=== PATIENT | male | born 1960 | race Caucasian/White ===

== ENCOUNTER 2016-10-11 11:57 | Emergency (ER) | payer MEDICAID, OTHER ==
[~2016-10-11] VITALS: Ht 182.9 cm; Wt 75.9 kg
[2016-10-11] MEDS ORDERED: SODIUM CHLORIDE 0.9% 1,000ML IVBOLUS ONE ×2 (13:00→15:30)
[2016-10-11] MEDS ORDERED: SODIUM CHLORIDE FLUSH 10ML SYR IVF ONE (13:00)
[2016-10-11 13:27] LABS: BLOOD UREA NITROGEN 10 mg/dL (7-18)
[2016-10-11 13:32] LABS: ASPARTATE AMINO TRANSFERASE 5 U/L (15-37)
[2016-10-11 13:33] LABS: IS PT STATUS REG ER OR PRE ER? YES
[2016-10-11] MEDS ORDERED: INSULIN REGULAR 100 UNITS/ML, 3ML VIAL SQ-INSULIN ONE (14:00)
[2016-10-11] MEDS ORDERED: INSULIN SINGLE DOSE, ER SQ-INSULIN ONE (14:46)
[2016-10-11] MEDS ORDERED: INSULIN REGULAR 100 UNITS/ML, 3ML VIAL ONE (14:47)
[2016-10-11 16:43] VITALS: BP 114/69
== END 2016-10-11 17:50 | disposition home or self-care (01) ==
LOC: ED 15:09
DX: E11.65 Type 2 diabetes mellitus with hyperglycemia (principal)
CPT/HCPCS: 36415; 71010; 80053; 82962; 84484; 85025; 93005; 96360; 96361; 96372; 99285; J7030

== ENCOUNTER 2017-01-28 20:14 | Inpatient (IN) | payer MEDICAID ==
[~2017-01-28] VITALS: Ht 182.9 cm; Wt 81.4 kg
[2017-01-28] MEDS ORDERED: ONDANSETRON 2MG/ML, 2ML ONE (21:29)
[2017-01-28] MEDS ORDERED: MORPHINE SULFATE 4 MG/ML, 1ML ONE (21:29)
[2017-01-28] MEDS ORDERED: methylPREDNISolone SOD SUCC 125 MG/2 ML ONE (21:29)
[2017-01-28] MEDS ORDERED: SODIUM CHLORIDE FLUSH 10ML SYR IVF ONE (21:30)
[2017-01-28] MEDS ORDERED: methylPREDNISolone SOD SUCC 125 MG/2 ML IVP ONE (21:30)
[2017-01-28] MEDS ORDERED: ONDANSETRON 2MG/ML, 2ML IVP ONE (21:30)
[2017-01-28] MEDS ORDERED: MORPHINE SULFATE 4 MG/ML, 1ML IVPush PRN (21:30)
[2017-01-28] MEDS ORDERED: SODIUM CHLORIDE 0.9% 1,000ML IVBOLUS ONE (21:30)
[2017-01-28 21:41] LABS: HEMATOCRIT 47.3 % (39.2-51.8); HEMOGLOBIN 15.8 g/dL (13.7-18.0); WHITE BLOOD COUNT 14.6 x10^3/uL (3.4-10)
[2017-01-28 21:46] LABS: ASPARTATE AMINO TRANSFERASE 10 U/L (15-37); BLOOD UREA NITROGEN 15 mg/dL (7-18)
[2017-01-28 21:51] LABS: IS PT STATUS REG ER OR PRE ER? YES
[2017-01-28] MEDS ORDERED: ALBUTEROL/IPRATROPIUM 2.5MG/0.5MG, 3 ML ONE (21:53)
[2017-01-28] MEDS ORDERED: AZITHROMYCIN 500 MG in SODIUM CHLORIDE 0.9% 250 ML IV ONE (23:00)
[2017-01-29] MEDS ORDERED: LABETALOL 5MG/ML, 20ML IVPush PRN
[2017-01-29] MEDS ORDERED: INSULIN DETEMIR 100 UNITS/ML, PEN SQ-INSULIN SCH
[2017-01-29] MEDS ORDERED: ONDANSETRON ODT 4 MG PO PRN
[2017-01-29] MEDS ORDERED: GUAIFENESIN/DM 200-20MG, 10ML UDC PO PRN
[2017-01-29] MEDS ORDERED: BISACODYL 10 MG SUPP PR PRN
[2017-01-29] MEDS ORDERED: HYDROcodone/APAP 5/325 TABLET PO PRN
[2017-01-29] MEDS ORDERED: ONDANSETRON 2MG/ML, 2ML IVPush PRN
[2017-01-29 01:00] VITALS: BP 132/68
[2017-01-29] MEDS: SODIUM CHLORIDE 0.9% 1,000 ML IV SCH ×3 (01:06→16:24)
[2017-01-29] MEDS: CEFTRIAXONE PMX 2GM/50ML 50 ML IV SCH (01:06)
[2017-01-29 02:00] VITALS: BP 109/58
[2017-01-29 05:11] LABS: HEMATOCRIT 39.4 % (39.2-51.8); HEMOGLOBIN 13.1 g/dL (13.7-18.0); WHITE BLOOD COUNT 10.6 x10^3/uL (3.4-10)
[2017-01-29 05:14] LABS: BLOOD UREA NITROGEN 21 mg/dL (7-18)
[2017-01-29 05:18] LABS: ASPARTATE AMINO TRANSFERASE 12 U/L (15-37)
[2017-01-29] MEDS ORDERED: INSULIN ASPART 100 UNITS/ML, PEN SQ-INSULIN ONE (06:00)
[2017-01-29 06:42] VITALS: BP 105/69
[2017-01-29] MEDS: INSULIN ASPART 100 UNITS/ML, PEN SQ-INSULIN SCH ×4 (07:00→21:58)
[2017-01-29] MEDS ORDERED: INSULIN ASPART 100 UNITS/ML, PEN SQ-INSULIN SCH (07:00)
[2017-01-29] MEDS: AZITHROMYCIN 500 MG TABLET PO SCH (07:30)
[2017-01-29] MEDS: ENOXAPARIN 40 MG/0.4 ML SQ SCH (07:31)
[2017-01-29] MEDS: ALBUTEROL/IPRATROPIUM 2.5MG/0.5MG, 3 ML NPPB SCH ×4 (07:32→20:12)
[2017-01-29] MEDS: SENNA/DOCUSATE TABLET PO SCH (07:32)
[2017-01-29] MEDS ORDERED: SODIUM CHLORIDE 0.9% 1,000ML IVBOLUS ONE (11:00)
[2017-01-29] MEDS: INSULIN DETEMIR 100 UNITS/ML, PEN SQ-INSULIN SCH (11:59)
[2017-01-29 13:57] VITALS: BP 112/54
[2017-01-29] MEDS ORDERED: DEXTROSE 4 GM TAB.CHEW PO PRN (14:30)
[2017-01-29] MEDS ORDERED: DEXTROSE 50%, 50ML SYRINGE IVPush PRN (14:30)
[2017-01-29] MEDS ORDERED: GLUCAGON 1 MG IM PRN (14:30)
[2017-01-29] MEDS ORDERED: metFORMIN 500 MG TABLET PO SCH (17:00)
[2017-01-29 18:37] VITALS: BP 116/56
[2017-01-29] MEDS: SODIUM CHLORIDE FLUSH 10ML SYR IVF SCH (21:00)
[2017-01-30] MEDS: SODIUM CHLORIDE 0.9% 1,000 ML IV SCH ×2 (00:11→07:33)
[2017-01-30] MEDS: CEFTRIAXONE PMX 2GM/50ML 50 ML IV SCH (00:11)
[2017-01-30] MEDS: INSULIN DETEMIR 100 UNITS/ML, PEN SQ-INSULIN SCH ×2 (00:19→12:08)
[2017-01-30 02:45] VITALS: BP 102/61
[2017-01-30] MEDS: INSULIN ASPART 100 UNITS/ML, PEN SQ-INSULIN SCH ×4 (07:19→21:15)
[2017-01-30] MEDS: SENNA/DOCUSATE TABLET PO SCH (07:21)
[2017-01-30] MEDS: ALBUTEROL/IPRATROPIUM 2.5MG/0.5MG, 3 ML NPPB SCH ×4 (07:55→19:10)
[2017-01-30 08:00] VITALS: BP 112/63
[2017-01-30] MEDS: ENOXAPARIN 40 MG/0.4 ML SQ SCH (09:09)
[2017-01-30] MEDS: FLUTICASONE/VILANTEROL 100-25MCG/INH INH SCH (09:09)
[2017-01-30] MEDS: SODIUM CHLORIDE FLUSH 10ML SYR IVF SCH ×2 (09:09→21:00)
[2017-01-30] MEDS: AZITHROMYCIN 500 MG TABLET PO SCH (09:09)
[2017-01-30 13:42] VITALS: BP 114/53
[2017-01-30 17:52] VITALS: BP 131/61
[2017-01-30 19:32] VITALS: BP 117/54
[2017-01-31] MEDS: CEFTRIAXONE PMX 2GM/50ML 50 ML IV SCH (00:07)
[2017-01-31] MEDS: INSULIN DETEMIR 100 UNITS/ML, PEN SQ-INSULIN SCH ×2 (00:08→12:01)
[2017-01-31 01:22] VITALS: BP 117/62
[2017-01-31] MEDS: INSULIN ASPART 100 UNITS/ML, PEN SQ-INSULIN SCH ×4 (07:00→21:00)
[2017-01-31] MEDS: SODIUM CHLORIDE FLUSH 10ML SYR IVF SCH ×2 (08:03→21:00)
[2017-01-31] MEDS: FLUTICASONE/VILANTEROL 100-25MCG/INH INH SCH (08:03)
[2017-01-31] MEDS: ENOXAPARIN 40 MG/0.4 ML SQ SCH (08:05)
[2017-01-31 08:30] VITALS: BP 115/65
[2017-01-31] MEDS: ALBUTEROL/IPRATROPIUM 2.5MG/0.5MG, 3 ML NPPB SCH ×4 (09:00→20:00)
[2017-01-31] MEDS: AZITHROMYCIN 500 MG TABLET PO SCH (09:46)
[2017-01-31 14:52] VITALS: BP 135/72
[2017-01-31 19:52] VITALS: BP 179/68
[2017-02-01] MEDS: CEFTRIAXONE PMX 2GM/50ML 50 ML IV SCH (00:01)
[2017-02-01] MEDS: INSULIN DETEMIR 100 UNITS/ML, PEN SQ-INSULIN SCH ×2 (00:51→12:08)
[2017-02-01 04:18] VITALS: BP 148/62
[2017-02-01 05:11] LABS: BLOOD UREA NITROGEN 16 mg/dL (7-18)
[2017-02-01 05:18] LABS: HEMATOCRIT 37.7 % (39.2-51.8); HEMOGLOBIN 12.7 g/dL (13.7-18.0); WHITE BLOOD COUNT 7.2 x10^3/uL (3.4-10)
[2017-02-01] MEDS: INSULIN ASPART 100 UNITS/ML, PEN SQ-INSULIN SCH ×3 (07:00→17:46)
[2017-02-01 07:10] VITALS: BP 124/71
[2017-02-01] MEDS: ALBUTEROL/IPRATROPIUM 2.5MG/0.5MG, 3 ML NPPB SCH ×3 (09:16→14:02)
[2017-02-01] MEDS: SODIUM CHLORIDE FLUSH 10ML SYR IVF SCH (09:46)
[2017-02-01] MEDS: ENOXAPARIN 40 MG/0.4 ML SQ SCH (09:46)
[2017-02-01] MEDS: AZITHROMYCIN 500 MG TABLET PO SCH (09:46)
[2017-02-01] MEDS: FLUTICASONE/VILANTEROL 100-25MCG/INH INH SCH (09:46)
[2017-02-01 13:55] VITALS: BP 133/73
[2017-02-01] MEDS ORDERED: AZIT500T5 PO (16:50)
[2017-02-01] MEDS ORDERED: INSU100I18 SQ-INSULIN (16:50)
[2017-02-01] MEDS ORDERED: INSU100V13 SQ-INSULIN (16:50)
[2017-02-01] MEDS ORDERED: ALBU6.7H INH (16:50)
[2017-02-01] MEDS ORDERED: PRED20TA PO (16:50)
[2017-02-01] MEDS ORDERED: CEFD300C37 PO (16:50)
== END 2017-02-01 18:19 | disposition home or self-care (01) | DRG 871 ==
LOC: ED 22:54 → EDIP 23:00 → 3NE 01-29
PROVIDERS: ADMIT Hospitalist; ATTEND Hospitalist
DX: A41.9 Sepsis, unspecified organism (principal); J18.9 Pneumonia, unspecified organism; J96.01 Acute respiratory failure with hypoxia; E87.2 Acidosis; E87.1 Hypo-osmolality and hyponatremia; J44.0 Chronic obstructive pulmonary disease with (acute) lower respiratory infection; J44.1 Chronic obstructive pulmonary disease with (acute) exacerbation; E11.65 Type 2 diabetes mellitus with hyperglycemia; F17.210 Nicotine dependence, cigarettes, uncomplicated; Z88.8 Allergy status to other drugs, medicaments and biological substances
CPT/HCPCS: 36415; 71020; 80048; 80053; 82947; 82962; 83036; 83605; 84145; 84439; 84443; 84484; 85025; 85379; 85610; 85730; 87040; 87070; 87205; 93005; 94640; 96374; 96375; J0456; J0696; J1650; J1815; J2405; J7620; J2930; J7030; J7050; J7512